=== PATIENT | female | born 1985 | race Two or more races ===

== ENCOUNTER 2023-11-02 09:45 | Inpatient (IN) | payer OTHER ==
[~2023-11-02] VITALS: Ht 160 cm; Wt 59.0 kg
[2023-11-02] MEDS ORDERED: ELIQUIS5 MG PO (09:55)
[2023-11-02] MEDS ORDERED: FOLIC ACID0.8 M1 (09:55)
[2023-11-02] MEDS ORDERED: 0.9 % SODIUM CHLORIDE 1,000 ML IV ONE (10:00)
[2023-11-02] MEDS ORDERED: MEGESTROL ACETATE 40 MG TABLET PO ONE ×2 (10:00→13:15)
[2023-11-02 10:30] LABS: HEMATOCRIT 33.6 % (36.0-45.00); HEMOGLOBIN 11.2 g/dL (12.0-15.00); MEAN CELL VOLUME 84.2 fL (80.00-100.00); MEAN CORPUSCULAR HGB CONC 33.2 g/dl (32.0-36.0); PLATELET COUNT 308 K/uL (150-450); RED BLOOD COUNT 3.99 M/uL (4.00-6.00)
[2023-11-02 10:33] LABS: RED CELL DISTRIBUTION WIDTH 27.9 % (11.5-14.5)
[2023-11-02 10:39] LABS: ERYTHROCYTE SEDIMENTATION RATE 19 mm/hr
[2023-11-02 10:53] LABS: INR 1.13; PROTHROMBIN TIME 12.2 SECONDS (9.0-11.5)
[2023-11-02 10:54] LABS: ALBUMIN 4.1 gm/dL (3.4-5.0); BILIRUBIN TOTAL 0.94 mg/dL (0.3-1.2); CALCIUM 8.9 mg/dL (8.5-10.1); CREATININE SERUM 0.88 mg/dL (0.55-1.02); GFR 72.3; GLOBULINA 3.4 G/DL (2.4-3.5); POTASSIUM 3.68 mEq/L (3.5-5.1); TOTAL PROTEIN 7.5 gm/dL (6.4-8.2)
[2023-11-02 11:08] LABS: D DIMER 1.28 MG/L; PARTIAL THROMBOPLASTIN TIME 31.8 SECONDS (22.0-34.0)
[2023-11-02] MEDS ORDERED: PANTOPRAZOLE SODIUM 40 MG/VIAL VIAL IV SCH (12:59)
[2023-11-02] MEDS ORDERED: 0.9 % SODIUM CHLORIDE 1,000 ML IV SCH (13:00)
[2023-11-02] MEDS ORDERED: ACETAMINOPHEN 325 MG TABLET PO PRN ×2 (13:00)
[2023-11-02] MEDS ORDERED: MEGESTROL ACETATE 40 MG TABLET PO SCH ×2 (13:11→18:00)
[2023-11-02 13:30] VITALS: BP 117/69
[2023-11-02 13:44] VITALS: BP 117/69; O2SAT 98
[2023-11-02 14:01] LABS: URINE APPEARANCE Turbid; URINE BILIRRUBIN Moderate (NEGATIVE); URINE BLOOD Large; URINE COLOR Red; URINE GLUCOSE Negative (NEGATIVE); URINE KETONE Negative (NEGATIVE); URINE LEUKOCYTE Moderate; URINE NITRATE Positive; URINE UROBILINOGEN 0.2 E.U./dl
[2023-11-02 14:05] LABS: URINE BACTERIA 1072.2 uL (0.0-1933); URINE EPITHELIAL CELLS 11.5 uL (0.0-38.8); URINE WBC 110.5 uL (0.0-23.2)
[2023-11-02 14:16] LABS: URINE PROTEIN 100 (NEGATIVE); URINE RBC > 10558.9 uL (0.0-20.8)
[2023-11-02 14:51] LABS: HEMATOCRIT 29.5 % (36.0-45.00); HEMOGLOBIN 9.9 g/dL (12.0-15.00); MEAN CELL VOLUME 85.1 fL (80.00-100.00); MEAN CORPUSCULAR HEMOGLOBIN 28.5 pg (27.00-32.0); MEAN CORPUSCULAR HGB CONC 33.5 g/dl (32.0-36.0); PLATELET COUNT 260 K/uL (150-450); RED BLOOD COUNT 3.46 M/uL (4.00-6.00)
[2023-11-02 15:03] LABS: RED CELL DISTRIBUTION WIDTH 27.9 % (11.5-14.5)
[2023-11-02 15:44] LABS: COL ADP 92 SECONDS (56-102)
[2023-11-02] MEDS ORDERED: RINGERS SOLUTION,LACTATED 1,000 ML IV SCH (17:15)
[2023-11-02] MEDS ORDERED: NORETHINDRONE 0.35 MG PO STA (20:27)
[2023-11-02 20:37] VITALS: BP 101/70; O2SAT 100
[2023-11-03 01:33] VITALS: BP 107/73; O2SAT 100
[2023-11-03] MEDS ORDERED: METHYLPREDNISOLONE SOD SUCC 40 MG VIAL IV STA (07:28)
[2023-11-03] MEDS ORDERED: DIPHENHYDRAMINE HCL 50 MG/ML VIAL 1ML IV STA (07:29)
[2023-11-03 08:21] LABS: HEMATOCRIT 23.8 % (36.0-45.00); MEAN CORPUSCULAR HEMOGLOBIN 28.2 pg (27.00-32.0); MEAN CORPUSCULAR HGB CONC 33.6 g/dl (32.0-36.0); PLATELET COUNT 228 K/uL (150-450); RED BLOOD COUNT 2.83 M/uL (4.00-6.00); RED CELL DISTRIBUTION WIDTH 27.7 % (11.5-14.5)
[2023-11-03 08:25] LABS: URINE APPEARANCE Turbid; URINE BILIRRUBIN Moderate (NEGATIVE); URINE BLOOD Moderate; URINE COLOR Red; URINE GLUCOSE Negative (NEGATIVE); URINE KETONE Negative (NEGATIVE); URINE LEUKOCYTE Large; URINE NITRATE Positive; URINE UROBILINOGEN 0.2 E.U./dl
[2023-11-03 08:29] LABS: URINE BACTERIA 1043.2 uL (0.0-1933); URINE CAST 1.46 uL (0.0-1.40); URINE EPITHELIAL CELLS 11.5 uL (0.0-38.8); URINE WBC 246.7 uL (0.0-23.2)
[2023-11-03 08:32] LABS: URINE PROTEIN 300 (NEGATIVE); URINE RBC > 10558.9 uL (0.0-20.8)
[2023-11-03 08:40] VITALS: BP 100/67
[2023-11-03] MEDS ORDERED: PATIENTS OWN MEDICATION (MEDICAMENTO EN PISO) PO SCH (09:00)
[2023-11-03] MEDS ORDERED: ACETAMINOPHEN 500 MG GEL..CAP PO PRN (10:45)
[2023-11-03 17:32] VITALS: BP 127/82; O2SAT 98
[2023-11-03] MEDS ORDERED: FUROsemide 20 MG/2 ML VIAL IV STA (18:52)
[2023-11-03 19:27] LABS: HEMATOCRIT 33.3 % (36.0-45.00); HEMOGLOBIN 11.3 g/dL (12.0-15.00); MEAN CELL VOLUME 84.2 fL (80.00-100.00); MEAN CORPUSCULAR HEMOGLOBIN 28.5 pg (27.00-32.0); MEAN CORPUSCULAR HGB CONC 33.9 g/dl (32.0-36.0); PLATELET COUNT 226 K/uL (150-450); RED BLOOD COUNT 3.95 M/uL (4.00-6.00); RED CELL DISTRIBUTION WIDTH 22.5 % (11.5-14.5)
[2023-11-03 20:34] LABS: BILIRUBIN TOTAL 0.88 mg/dL (0.3-1.2); CALCIUM 9.5 mg/dL (8.5-10.1); CREATININE SERUM 0.78 mg/dL (0.55-1.02); GFR 83.1; GLOBULINA 3.7 G/DL (2.4-3.5); MAGNESIUM 1.9 mg/dL (1.8-2.4); POTASSIUM 3.97 mEq/L (3.5-5.1); TOTAL PROTEIN 7.7 gm/dL (6.4-8.2)
[2023-11-03 20:59] LABS: PHOSPHOROUS 1.3 mg/dL (2.5-4.9)
[2023-11-04] MEDS ORDERED: FUROsemide 20 MG/2 ML VIAL IV SCH (01:00)
[2023-11-04 02:30] VITALS: BP 111/78; O2SAT 100
[2023-11-04 09:56] VITALS: BP 134/85
[2023-11-04] MEDS ORDERED: POTASSIUM PHOS,M-BASIC-D-BASIC 18 MM in 0.9 % SODIUM CHLORIDE 500 ML IV ONE (15:15)
[2023-11-04 17:24] VITALS: BP 146/89; O2SAT 99
[2023-11-05 01:29] VITALS: BP 107/69; O2SAT 99
[2023-11-05 04:57] LABS: INR 0.98; PARTIAL THROMBOPLASTIN TIME 25.9 SECONDS (22.0-34.0); PROTHROMBIN TIME 10.7 SECONDS (9.0-11.5)
[2023-11-05 05:01] LABS: ALBUMIN 3.8 gm/dL (3.4-5.0); BILIRUBIN TOTAL 0.54 mg/dL (0.3-1.2); CALCIUM 8.5 mg/dL (8.5-10.1); CREATININE SERUM 0.9 mg/dL (0.55-1.02); GFR 70.45; GLOBULINA 3.5 G/DL (2.4-3.5); POTASSIUM 3.52 mEq/L (3.5-5.1); TOTAL PROTEIN 7.3 gm/dL (6.4-8.2)
[2023-11-05 05:31] LABS: HEMATOCRIT 35.9 % (36.0-45.00); MEAN CELL VOLUME 84.8 fL (80.00-100.00); MEAN CORPUSCULAR HEMOGLOBIN 28.3 pg (27.00-32.0); MEAN CORPUSCULAR HGB CONC 33.3 g/dl (32.0-36.0); PLATELET COUNT 239 K/uL (150-450); RED BLOOD COUNT 4.24 M/uL (4.00-6.00); RED CELL DISTRIBUTION WIDTH 23.3 % (11.5-14.5)
[2023-11-05] MEDS ORDERED: [UNRECOGNIZED DRUG - OTHER] PO SCH (10:40)
[2023-11-05] MEDS ORDERED: DEXTROSE 5%-LACTATED RINGERS 1,000 ML IV SCH (14:00)
[2023-11-05 18:23] VITALS: BP 138/83
[2023-11-05] MEDS ORDERED: PATIENTS OWN MEDICATION (MEDICAMENTO EN PISO) PO SCH (21:00)
[2023-11-06 01:54] VITALS: BP 144/71
[2023-11-06 09:00] VITALS: BP 110/70; O2SAT 20
[2023-11-06] MEDS ORDERED: CLOPIDOGREL BISULFATE 75 MG TABLET PO SCH (12:00)
[2023-11-06 19:13] VITALS: BP 126/81
[2023-11-07 03:05] VITALS: BP 116/78; O2SAT 100
[2023-11-07 09:11] VITALS: BP 109/74
[2023-11-07 11:15] LABS: HEMATOCRIT 34.2 % (36.0-45.00); HEMOGLOBIN 11.4 g/dL (12.0-15.00); MEAN CELL VOLUME 85.3 fL (80.00-100.00); MEAN CORPUSCULAR HEMOGLOBIN 28.5 pg (27.00-32.0); MEAN CORPUSCULAR HGB CONC 33.4 g/dl (32.0-36.0); PLATELET COUNT 208 K/uL (150-450); RED BLOOD COUNT 4.01 M/uL (4.00-6.00); RED CELL DISTRIBUTION WIDTH 22.9 % (11.5-14.5)
[2023-11-07] MEDS ORDERED: Cyanocobalamin/Mecobalamin 1 TAB.SL SL SCH (17:00)
[2023-11-07] MEDS ORDERED: VITAMIN B COMPLEX 1 EACH PO SCH (17:00)
[2023-11-07] MEDS ORDERED: SOD FERRIC GLUC COMPLX/SUCROSE 62.5 MG/5 ML AMPUL IV SCH (17:00)
[2023-11-07 17:53] VITALS: BP 110/73
[2023-11-08 01:29] VITALS: BP 110/72; O2SAT 98
[2023-11-08 09:12] VITALS: BP 108/65
[2023-11-08 09:12] LABS: HEMATOCRIT 34.2 % (36.0-45.00); HEMOGLOBIN 11.4 g/dL (12.0-15.00); MEAN CELL VOLUME 86.7 fL (80.00-100.00); MEAN CORPUSCULAR HEMOGLOBIN 28.9 pg (27.00-32.0); MEAN CORPUSCULAR HGB CONC 33.3 g/dl (32.0-36.0); PLATELET COUNT 204 K/uL (150-450); RED BLOOD COUNT 3.94 M/uL (4.00-6.00); RED CELL DISTRIBUTION WIDTH 22.5 % (11.5-14.5)
[2023-11-08 09:15] LABS: HOMOCYSTEINE 8.8 umol/L (0.0-14.5)
[2023-11-08] MEDS ORDERED: FUSION PLUS CA1 EACH PO (13:38)
[2023-11-08] MEDS ORDERED: CLOPIDOGREL BIS75 MG PO (13:38)
[2023-11-08] MEDS ORDERED: ABANEU-SL TABL1 EACH SL (13:38)
[2023-11-08 17:10] LABS: ANTI CARDIO IGG < 9 GPL U/mL (0-14); ANTI CARDIO IGM < 9 MPL U/mL (0-12)
[2023-11-09 15:11] LABS: ANTI-THROMBIN III 121 % (75-135)
[2023-11-11 06:35] LABS: beta 2 gly iga < 9 (0-25); beta 2 gly igg < 9 (0-20); beta 2 gly igm < 9 (0-32)
== END 2023-11-08 14:42 | disposition home or self-care (01) | DRG 760 ==
LOC: ER 09:45 → MEDJ 13:26 → SEC-K 13:26 → MEDJ 14:39
PROVIDERS: General Practice; Internal Medicine; Internal Medicine Geriatric Medicine; Internal Medicine Hematology & Oncology; ADMIT Obstetrics & Gynecology Gynecology; ATTEND Obstetrics & Gynecology Gynecology
PROC: 30233N1 Transfusion of Nonautologous Red Blood Cells into Peripheral Vein, Percutaneous Approach (ICD-10-PCS; principal; 2023-11-03)
PROC: B246ZZZ Ultrasonography of Right and Left Heart (ICD-10-PCS; 2023-11-05)
DX: N93.9 Abnormal uterine and vaginal bleeding, unspecified (principal); I74.2 Embolism and thrombosis of arteries of the upper extremities; D25.9 Leiomyoma of uterus, unspecified; Z79.01 Long term (current) use of anticoagulants; D64.9 Anemia, unspecified; Z20.822 Contact with and (suspected) exposure to COVID-19

== ENCOUNTER 2023-12-12 05:45 | Inpatient (IN) | payer OTHER ==
[2023-12-11 13:51] LABS: INR 1.01; PARTIAL THROMBOPLASTIN TIME 30.8 SECONDS (22.0-34.0)
[2023-12-11 14:53] LABS: RH POSITIVE
[~2023-12-12] VITALS: Ht 152.4 cm; Wt 612.3 kg
[~2023-12-12 05:45] MED LIST: ABANEU-SL TABL1 EACH SL; CLOPIDOGREL BIS75 MG PO; ELIQUIS5 MG PO; FEROCON CAPSUL1 EACH PO; FOLIC ACID0.8 M1; FOLIC ACID0.8 M1 PO; FUSION PLUS CA1 EACH PO; NORA-BE0.35 MG PO
[2023-12-12] MEDS ORDERED: PIPERACILLIN/TAZOBACTAM SODIUM 3.375 GM VIAL IV ONE (09:00)
[2023-12-12] MEDS ORDERED: LIDOCAINE HCL 1%/EPINEPHRINE 20ML VIAL IJ ONE (09:15)
[2023-12-12] MEDS ORDERED: POVIDONE-IODINE 118 ML BOTT TOP ONE (09:15)
[2023-12-12] MEDS ORDERED: BUPIVACAINE HCL 30 ML VIAL IJ ONE (09:15)
[2023-12-12] MEDS ORDERED: VISTASEAL DUAL APPICATOR 1 EACH APPL TOP ONE (09:15)
[2023-12-12] MEDS ORDERED: THROMBIN,HU/FIBRINOGEN/CALCIUM 10 ML SYRINGE TOP ONE (09:15)
[2023-12-12] MEDS ORDERED: CEFOXITIN SODIUM 2,000 MG VIAL IV SCH (10:09)
[2023-12-12] MEDS ORDERED: RINGERS SOLUTION,LACTATED 1,000 ML IV SCH (10:09)
[2023-12-12] MEDS ORDERED: GABAPENTIN 100 MG CAPSULE PO SCH (10:12)
[2023-12-12] MEDS ORDERED: MORPHINE SULFATE 4 MG/ML VIAL IV PRN (10:15)
[2023-12-12] MEDS ORDERED: MORPHINE SULFATE 4 MG/ML VIAL IV ONE ×2 (11:05→11:40)
[2023-12-12] MEDS ORDERED: ACETAMINOPHEN 325 MG TABLET PO SCH (12:00)
[2023-12-12] MEDS ORDERED: ONDANSETRON HCL 2 MG/ML VIAL IV SCH (12:00)
[2023-12-12 12:04] LABS: HEMATOCRIT 40.8 % (36.0-45.00); HEMOGLOBIN 13.5 g/dL (12.0-15.00); MEAN CELL VOLUME 95.5 fL (80.00-100.00); MEAN CORPUSCULAR HEMOGLOBIN 31.6 pg (27.00-32.0); MEAN CORPUSCULAR HGB CONC 33.1 g/dl (32.0-36.0); PLATELET COUNT 256 K/uL (150-450); RED BLOOD COUNT 4.27 M/uL (4.00-6.00); RED CELL DISTRIBUTION WIDTH 16.9 % (11.5-14.5)
[2023-12-12 12:26] LABS: CALCIUM 8.6 mg/dL (8.5-10.1); CREATININE SERUM 0.88 mg/dL (0.55-1.02); GFR 72.3; POTASSIUM 4.24 mEq/L (3.5-5.1)
[2023-12-12 13:59] VITALS: BP 123/76
[2023-12-12 16:00] VITALS: BP 117/73
[2023-12-13 00:30] VITALS: BP 126/79
[2023-12-13 04:00] VITALS: BP 121/72
[2023-12-13 07:54] LABS: MEAN CELL VOLUME 96.1 fL (80.00-100.00); MEAN CORPUSCULAR HEMOGLOBIN 32.2 pg (27.00-32.0); MEAN CORPUSCULAR HGB CONC 33.5 g/dl (32.0-36.0); PLATELET COUNT 221 K/uL (150-450); RED BLOOD COUNT 3.74 M/uL (4.00-6.00); RED CELL DISTRIBUTION WIDTH 16.1 % (11.5-14.5)
[2023-12-13 08:00] VITALS: BP 128/82
[2023-12-13] MEDS ORDERED: ENOXAPARIN SODIUM 40 MG/0.4 ML SYRINGE SUBCUTANEO SCH (09:00)
[2023-12-13] MEDS ORDERED: OxyCODONE HCL/APAP UD (PERCOCET) PO PRN (12:30)
[2023-12-13 18:00] VITALS: BP 131/85
[2023-12-14 01:16] VITALS: BP 124/83
[2023-12-14 07:56] VITALS: BP 117/74
== END 2023-12-14 11:16 | disposition home or self-care (01) | DRG 742 ==
LOC: CIR.AMB 05:45 → OB/GYN 13:46
PROVIDERS: Internal Medicine Geriatric Medicine; ADMIT Obstetrics & Gynecology Gynecology; ATTEND Obstetrics & Gynecology Gynecology
PROC: 0UT24ZZ Resection of Bilateral Ovaries, Percutaneous Endoscopic Approach (ICD-10-PCS; 2023-12-12)
PROC: 0UT74ZZ Resection of Bilateral Fallopian Tubes, Percutaneous Endoscopic Approach (ICD-10-PCS; 2023-12-12)
PROC: 0T788DZ Dilation of Bilateral Ureters with Intraluminal Device, Via Natural or Artificial Opening Endoscopic (ICD-10-PCS; 2023-12-12)
PROC: 0UT94ZZ Resection of Uterus, Percutaneous Endoscopic Approach (ICD-10-PCS; principal; 2023-12-12 07:00)
DX: D25.1 Intramural leiomyoma of uterus (principal); D68.59 Other primary thrombophilia; I74.2 Embolism and thrombosis of arteries of the upper extremities; E72.12 Methylenetetrahydrofolate reductase deficiency; D25.0 Submucous leiomyoma of uterus; Z79.01 Long term (current) use of anticoagulants; N80.03 Adenomyosis of the uterus; N93.9 Abnormal uterine and vaginal bleeding, unspecified; D64.9 Anemia, unspecified